=== PATIENT | female | born 1950 | race Hispanic/Latino ===

== ENCOUNTER → 2024-08-06 | Day surgery (SDC) | payer MEDICARE ==
[2024-07-30 13:42] LABS: BASOPHILS % 0.7 % (0.0-1.0); EOSINOPHILS # (AUTO) 0.2 (0.0-0.4); EOSINOPHILS % 2.5 % (0.0-6.0); HEMATOCRIT 32.1 % (34.2-44.1); HEMOGLOBIN 9.9 g/dL (12.0-16.0); LYMPHOCYTES # (AUTO) 1.4 (1.0-3.2); LYMPHOCYTES % 23.5 % (18.0-39.1); MEAN CORPUSCULAR HEMOGLOBIN 29.9 pg (28-32); MEAN CORPUSCULAR HGB CONC 30.8 g/dL (31-35); MONOCYTES # (AUTO) 0.6 (0.2-0.8); MONOCYTES % 9.8 % (4.4-11.3); NEUTROPHILS # (AUTO) 3.8 (2.1-6.9); NEUTROPHILS % 62.2 % (38.7-80.0); PLATELET COUNT 148 x10e3/uL (140-360); RED BLOOD COUNT 3.31 x10e6/uL (3.6-5.1); RED CELL DISTRIBUTION WIDTH 14.1 % (11.7-14.4); WHITE BLOOD COUNT 6.12 x10e3/uL (4.8-10.8)
[~2024-08-06] MED LIST: JANUVIA100 MG PO; LEVOTHYROXINE100 MC1 PO; LIDOCAINE HCL 2% LOCAL INJ 5 ML SDV VIAL INJ ONE; LINZESS72 MCG; LOSARTAN POTAS100 MG PO; METFORMIN HCL850 MG PO; OMEPRAZOLE40 MG PO; PIOGLITAZONE HC45 MG PO; PRAVASTATIN SOD40 MG; PROPOFOL IV EMULSION 50 ML IV ONE; VISBIOME 112.51 EACH; VITAMIN D250 MCG
[2024-08-06] MEDS: LACTATED RINGER'S 1,000 ML ONE (07:36)
[2024-08-06 10:19] VITALS: TEMP 98.3
[2024-08-06 10:50] VITALS: BP 141/90; PULSE 76; RESP 18; O2SAT 98
== END | disposition home or self-care (01) ==
LOC: OR 06:30
PROVIDERS: ATTEND Internal Medicine Gastroenterology
DX: Z12.11 Encounter for screening for malignant neoplasm of colon (principal); K29.50 Unspecified chronic gastritis without bleeding; K21.9 Gastro-esophageal reflux disease without esophagitis; K57.30 Diverticulosis of large intestine without perforation or abscess without bleeding; K64.8 Other hemorrhoids; I10 Essential (primary) hypertension; Z78.9 Other specified health status; Z71.3 Dietary counseling and surveillance; E78.5 Hyperlipidemia, unspecified; E11.9 Type 2 diabetes mellitus without complications; E03.9 Hypothyroidism, unspecified; Z01.810 Encounter for preprocedural cardiovascular examination; Z01.812 Encounter for preprocedural laboratory examination; Z79.84 Long term (current) use of oral hypoglycemic drugs; Z79.899 Other long term (current) drug therapy; Z68.26 Body mass index [BMI] 26.0-26.9, adult
CPT/HCPCS: 36415; 43239 ×2; 45378; 82948; 85025; 88305; 88342; 93005; G0121; J2003